=== PATIENT | female | born 1960 | race African-American/Black ===

== ENCOUNTER 2016-11-26 14:31 | Emergency (ER) | payer SELFPAY ==
[2016-11-26] MEDS ORDERED: Naproxen 500 MG TAB ONE (14:55)
[2016-11-26] MEDS ORDERED: HYDROcodone/Acetaminophen 10/325 mg Tablet ONE (14:55)
[2016-11-26] MEDS ORDERED: Mupirocin 2% Ointment 22 GM Tube ONE (14:55)
[2016-11-26] MEDS ORDERED: Sulfameth/Trimethoprim DS 800-160mg TAB ONE (14:55)
[2016-11-26] MEDS ORDERED: Cephalexin 500 MG CAP ONE (14:55)
== END 2016-11-26 15:12 | disposition home or self-care (01) ==
LOC: MADERS 14:31
DX: L02.214 Cutaneous abscess of groin (principal); E11.9 Type 2 diabetes mellitus without complications; Z79.4 Long term (current) use of insulin
CPT/HCPCS: 87070; 87077; 87205; 99283

== ENCOUNTER 2020-12-29 16:46 | Emergency (ER) | payer SELFPAY ==
[2020-12-29 17:11] LABS: Bilirubin Negative (Negative); Blood, Urine Negative (Negative); Clarity Clear (Clear); Glucose, Urine (Dipstick) 500 mg/dL (Negative); Ketone, Urine Negative (Negative); Leukocyte Negative (Negative); Nitrite Negative (Negative); Protein, Urine (Dipstick) Negative (Neg-Trace); Urobilinogen 0.2 mg/dL (Less than 2)
[2020-12-29 17:12] LABS: Specific Gravity, Urine 1.004 (1.002-1.036)
[2020-12-29 17:38] LABS: #Basophils 0.1 thou/uL (0.0-0.2); #Eosinphils 0.2 thou/uL (0.0-0.7); #Lymphocytes 2.1 thou/uL (1.20-3.40); #Monocytes 0.6 thou/uL (0.11-0.59); #Neutrophils 4.1 thou/uL (1.40-6.50); %Basophils 1.2 % (0.0-1.0); %Eosinophils 2.3 % (0.0-10.0); %Lymphocytes 30.1 % (21.0-51.0); %Monocytes 8.1 % (0.0-10.0); %Neutrophils 58.3 % (42.0-75.0); Hemoglobin 14.5 g/dL (12.0-16.0); Mean Corpuscular HGB CONC 32.9 g/dL (32.0-36.0); Mean Corpuscular Hemoglobin 31.1 pg (27.0-31.0); Mean Corpuscular Volume 94.7 fL (78.0-98.0); Mean Platelet Volume 10.4 fL (7.4-10.4); Platelet Count 149 thou/uL (130-400); RBC Distribution Width 10.8 % (11.5-14.5); Red Blood Cell (RBC) Count 4.64 mill/uL (4.20-5.40); White Blood Cell (WBC) Count 6.9 thou/uL (4.8-10.8)
[2020-12-29 17:51] LABS: ALT (SGPT) 127 U/L (8-55); AST (SGOT) 134 U/L (5-34); Albumin 3.5 g/dL (3.5-5.0); Alkaline Phosphatase 78 U/L (40-110); Anion Gap 17 mmol/L (10-20); BUN (Urea Nitrogen) 7 mg/dL (9.8-20.1); Bilirubin, Total 0.8 mg/dL (0.2-1.2); Calc. Creatinine Clearance 0 mL/min (70-130); Calcium 8.4 mg/dL (7.8-10.44); Carbon Dioxide 19 mmol/L (22-29); Chloride 109 mmol/L (98-107); Globulin 3.9 g/dL (2.4-3.5); Glucose 378 mg/dL (70-105); Magnesium 1.9 mg/dL (1.6-2.6); Potassium 3.9 mmol/L (3.5-5.1); Protein, Total 7.4 g/dL (6.0-8.3); Sodium 141 mmol/L (136-145)
[2020-12-29] MEDS ORDERED: Ondansetron PF 4 MG/2 ML Vial ONE (18:14)
[2020-12-29] MEDS ORDERED: Morphine 2 MG/ML VIAL ONE (19:07)
== END 2020-12-29 19:46 | disposition short-term general hospital (02) ==
LOC: MADERS 16:46
DX: S00.93XA Contusion of unspecified part of head, initial encounter (principal); K75.9 Inflammatory liver disease, unspecified; E11.65 Type 2 diabetes mellitus with hyperglycemia; Z79.4 Long term (current) use of insulin; W18.2XXA Fall in (into) shower or empty bathtub, initial encounter
CPT/HCPCS: 36416; 70450; 72125; 80053; 81003; 83735; 85025; 93005; 96374; 96375; 36415-59; J2270; J2405

== ENCOUNTER 2021-08-22 15:22 | Emergency (ER) | payer SELFPAY ==
[~2021-08-22 15:22] MED LIST: Iopamidol 370 76% 125 ML VIAL FS ONE
[2021-08-22] MEDS ORDERED: Albuterol Sulfate 2.5 mg/0.5 ml Neb ONE ×2 (15:27→15:44)
[2021-08-22] MEDS ORDERED: Racepinephrine 2.25% 0.5 ML NEB ONE (15:27)
[2021-08-22 15:51] LABS: Hemoglobin 16.8 g/dL (12.0-16.0); Lymphocytes 34 % (21-51); MDiff Complete? YES; Mean Corpuscular HGB CONC 33.8 g/dL (32.0-36.0); Mean Corpuscular Hemoglobin 29.9 pg (27.0-31.0); Mean Corpuscular Volume 88.6 fL (78.0-98.0); Mean Platelet Volume 9.6 fL (7.4-10.4); Monocytes 3 % (0-10); Neutrophil 59 % (42-75); Platelet Count 231 thou/uL (130-400); RBC Distribution Width 10.8 % (11.5-14.5); Reactive Lymphocytes 4 % (0-10); Red Blood Cell (RBC) Count 5.63 mill/uL (4.20-5.40); White Blood Cell (WBC) Count 11.2 thou/uL (4.8-10.8)
[2021-08-22 16:04] LABS: ALT (SGPT) 56 U/L (8-55); AST (SGOT) 41 U/L (5-34); Albumin 4.3 g/dL (3.5-5.0); Alkaline Phosphatase 92 U/L (40-110); Anion Gap 21 mmol/L (10-20); BUN (Urea Nitrogen) 9 mg/dL (9.8-20.1); Bilirubin, Total 1.2 mg/dL (0.2-1.2); Calc. Creatinine Clearance 0 mL/min (70-130); Calcium 10.2 mg/dL (7.8-10.44); Carbon Dioxide 21 mmol/L (22-29); Chloride 102 mmol/L (98-107); Globulin 4.4 g/dL (2.4-3.5); Glucose 409 mg/dL (70-105); Potassium 3.6 mmol/L (3.5-5.1); Protein, Total 8.7 g/dL (6.0-8.3); Sodium 140 mmol/L (136-145)
[2021-08-22] MEDS ORDERED: Lorazepam 2 MG/ML VIAL ONE (16:35)
== END 2021-08-22 21:40 | disposition home or self-care (01) ==
LOC: MADERS 15:22
DX: R06.00 Dyspnea, unspecified (principal); F41.9 Anxiety disorder, unspecified; E11.9 Type 2 diabetes mellitus without complications
CPT/HCPCS: 36415; 70360; 70450; 70490; 71045; 71275; 80053; 83880; 84484; 85025; 93005; J2060; J7611; Q9967